=== PATIENT | male | born 1985 | race Caucasian/White ===

== ENCOUNTER → 2023-10-22 | Outpatient (CLI) | payer BC ==
--- NOTE | 2023-10-23 14:45 | US ---
EXAMINATION TYPE: US venous doppler duplex LE RT DATE OF EXAM: 10/22/2023 9:04 AM COMPARISON: NONE CLINICAL INDICATION: Male, 37 years old with history of M79.604 PAIN IN RIGHT LEG R20.0 ANESTHESIA OF SKIN; Patient states he was bitten by a tick 2 years ago, was treated for Lyme Disease and ever sinc e then his right leg has been numb SIDE PERFORMED: Right TECHNIQUE: The lower extremity deep venous system is examined utilizing real time linear array sonog michael with graded compression, doppler sonography and color-flow sonography. VESSELS IMAGED: Common Femoral Vein Deep Femoral Vein Greater Saphenous Vein * Femoral Vein Popliteal Vein Small Saphenous Vein * Proximal Calf Veins (* superficial vessels) Right Leg: Appears negative for DVT IMPRESSION: 1. Right lower extremity ultrasound negative for deep venous thrombosis.
--- NOTE | 2023-10-23 19:02 | US ---
EXAMINATION TYPE: US arterial LE single level DATE OF EXAM: 10/22/2023 9:45 AM CLINICAL INDICATION: Male, 37 years old with history of M79.604 PAIN IN RIGHT LEG R20.0 ANESTHESIA OF SKIN; Patient states 2 years ago he was bitten by a tick, was treated for Lyme Disease and ever sinc e his right leg has been numb History of: Smoker: Current Hypertension: No Diabetic: No Hyperlipidemia: No TIA/CVA: No Previous Vascular Surgery: No SC: No Doppler Waveforms: Lower extremity is triphasic waveforms with some biphasic waveforms within the digital arteries. Righ t Brachial Pressure: 125 Left Brachial Pressure: 133 Ankle-Brachial Indices: Right: 1.14 Left: 1.11 (Vessel hardening > 1.4; Normal 0.9 - 1.4, Moderate 0.7 - 0.9, Severe 0.5-0.7) IMPRESSION: 1. There may be some moderate narrowing within the distal dorsal talus artery ratio of 0.89. 2. Remaining vascular structures abnormal ratios without stenosis.
== END | disposition home or self-care (01) ==
LOC: RADUSWWP 08:20
PROVIDERS: ATTEND Family Medicine
DX: M79.604 Pain in right leg (principal); R20.0 Anesthesia of skin
CPT/HCPCS: 93922